=== PATIENT | female | born 1965 | race Caucasian/White ===

== ENCOUNTER 2016-06-19 19:08 | Observation (INO) ==
[2016-06-19] MEDS ORDERED: Ondansetron 4 MG/2 ML VIAL IVP ONE (19:25)
[2016-06-19] MEDS ORDERED: *HR* Morphine 2 MG/ML SYRINGE IVP ONE ×3 (19:25→22:33)
[2016-06-19] MEDS ORDERED: Furosemide 40 MG/4 ML VIAL IVP ONE (19:25)
--- NOTE | 2016-06-19 19:29 | Emergency Department Note ---
Disposition Clinical Impression: Chest pain Qualifiers: Chest pain type: precordial pain Qualified Code(s): R07.2 - Precordial pain Disposition: Admitted As Inpatient Condition: Good Referrals: Marianela Maria CNP [Primary Care Provider] - Forms: ED Satisfaction Letter Time of Disposition: 23:23 Chest Pain HPI - General Chief Complaint: ED Chest Pain Stated Complaint: chest pain difficulty breathing Time Seen by Provider: 06/19/16 19:25 Source: patient Mode of arrival: ambulatory Limitations: no limitations Vital Signs Reviewed: Yes Nursing Notes Reviewed: Yes - History of Present Illness HPI Narrative: 50-year-old female who presents complaining of difficulty breathing since last night. She states she sat up late last night. She states about an hour ago after dinner she had some sharp discomfort in her chest. It is in the precordial area, to level VII. There is a pressure component to it. She feels tight like she cannot breathe. She took 3 nitroglycerin which did not really change the pain much still a level VII. She has had 3 previous MIs. She states her symptoms and never been the same with any of the MRIs. She has had bypass surgery and 2 stents. Pt complaint: chest pain Onset (ago): Just [employer] Time: 18:30 Duration: constant Onset: during rest Pain Location: substernal Severity: moderate Severity scale (1-10): 7 Quality: tightness, sharp Improves with: nothing Worsens with: nothing Context: other (History of [place] 3, bypass, stents.) Associated symptoms: Reports: nausea Treatments prior to arrival chest pain: nitroglycerin - Related Data Home Medications Medication Instructions Recorded Confirmed Albuterol Sulfate [Proair Hfa] 1 puff IH 02/28/16 Carvedilol [Coreg] 12.5 mg PO BID 02/28/16 06/19/16 Citalopram Hydrobromide [Celexa] 40 mg PO DAILY 02/28/16 06/19/16 Enalapril Maleate [Vasotec] 5 mg PO DAILY 02/28/16 06/19/16 Loratadine [Claritin] 10 mg PO DAILY 02/28/16 06/19/16 Nitroglycerin [Nitrostat] 0.4 mg SL PRN PRN 02/28/16 06/19/16 Prasugrel [Effient] 10 mg PO DAILY 02/28/16 06/19/16 Ranitidine HCl [Zantac] 150 mg PO BID 02/28/16 06/19/16 Rosuvastatin [Crestor] 40 mg PO HS 02/28/16 06/19/16 Fluticasone Propionate Nasal 16 gm NS DAILY 04/05/16 06/19/16 [Flonase] Furosemide [Lasix] 20 mg PO DAILY 05/25/16 06/19/16 Previous Rx's Medication Instructions Recorded Dicyclomine [Bentyl] 10 - 20 mg PO QID PRN #30 capsule 06/06/16 Ondansetron ODT [Zofran ODT] 4 mg SL Q6HR PRN #12 tab.rapdis 06/06/16 Oxycodone HCl/Acetaminophen 1 - 2 each PO Q6H PRN #16 tablet 06/06/16 [Percocet 5-325 mg Tablet] Allergies Allergy/AdvReac Type Severity Reaction Status Date / Time aspirin Allergy Hives Verified 06/14/16 11:17 NSAIDS (Non-Steroidal Allergy Hives Verified 06/14/16 11:17 Anti-Inflamma All systems ED: reviewed and negative except as stated. Constitutional: Denies: fever, chills Eyes: Denies: vision change ENT ED: Denies: ear pain, throat pain Cardiovascular: Reports: chest pain. Denies: palpitations Respiratory: Reports: dyspnea. Denies: cough, wheezes, hemoptysis, sputum production Gastrointestinal: Reports: nausea. Denies: abdominal pain, vomiting Musculoskeletal: Denies: back pain, neck pain Neurological: Denies: weakness, numbness, paresthesias Chest Pain PMH - Past Medical History Medical history: Reports: arthritis, COPD, GERD, hyperlipidemia, hypertension, kidney stones, myocardial infarction, other Surgical history: Reports: other (History of a spine stimulator with removal initially placed in [facility] then removed in [facility] by another surgeon is had chronic problems since then) Psychiatric history: Reports: anxiety, depression - Social History Smoking Status: Current every day smoker Alcohol use: Reports: none Drug use: Reports: none Physical Exam - General Limitations: no limitations General appearance: alert, in no apparent distress - Head Head exam: atraumatic, normocephalic - Eye Eye exam: Present: PERRL, EOMI. Absent: scleral icterus, conjunctival injection - ENT ENT exam: normal oropharynx, mucous membranes moist - Neck Neck exam: Present: normal inspection, full ROM, trachea midline. Absent: tenderness, lymphadenopathy - Chest Chest inspection: Present: normal inspection, symmetric chest wall rise. Absent : tenderness - Respiratory Respiratory exam: Present: normal lung sounds bilaterally. Absent: respiratory distress, wheezes - Cardiovascular Cardiovascular exam: Present: regular rate, normal rhythm, normal heart sounds - Abdominal Exam Abdominal exam: Present: soft, Non-Tender, normal bowel sounds. Absent: distention, organomegaly, mass - Extremities Exam Extremities exam: Present: normal inspection, full ROM, normal capillary refill. Absent: tenderness, pedal edema, calf tenderness - Neurological Exam Neurological exam: Present: alert, oriented X3, normal gait. Absent: motor sensory deficit - Psychiatric Psychiatric exam: Present: normal affect, normal mood - Skin Skin exam: Present: warm, dry, intact. Absent: cyanosis, diaphoresis Course - Reevaluation(s) Reevaluation #1: She had no relief with nitroglycerin at home. She got no relief with nitroglycerin here. Pain medication gave her relief. She had some recurrent sharp discomfort. Her pain is atypical for cardiac pain. In light of her history of having cardiac events with different types of pain, in light of the fact that I do not have an old EKG to compare, I think it would be prudent to watch her overnight and repeat her enzymes. I spoke with Dr. Montalvo. He is agreeable. Time: 23:17 Vital Signs Pulse Rate 93 06/19/16 19:08 Respiratory Rate 18 06/19/16 19:08 Blood Pressure 135/78 06/19/16 19:08 O2 Sat by Pulse Oximetry 96 06/19/16 19:08 Temperature 97.7 F 06/19/16 21:02 Pulse Rate 68 06/19/16 23:01 Respiratory Rate 18 06/19/16 23:01 Blood Pressure 123/77 06/19/16 23:01 O2 Sat by Pulse Oximetry 94 L 06/19/16 23:01 Oxygen Delivery Oxygen Delivery Room Air Chest Pain - MDM Narrative Medical decision making narrative: Differential includes but is not limited to coronary artery disease, angina, myocardial infarction, pulmonary embolus, pneumothorax, pneumonia, congestive heart failure - Medical Records Medical records reviewed: Yes I reviewed the patient's medical records. - Lab Data Lab results reviewed: Yes I reviewed the patient's lab results. Result diagrams: 06/19/16 19:54 06/19/16 19:54 Lab Results 06/19/16 06/19/16 06/19/16 Range/Units 19:54 19:54 19:54 WBC 7.6 (4.3-11.1) K/mcL RBC 4.59 (3.82-4.97) M/mcL Hgb 14.0 D (11.5-15.4) g/dL Hct 41.0 (35.3-44.9) % MCV 89.3 (83.0-100.0) fL MCH 30.5 (28.0-33.3) pg MCHC 34.1 (31.6-35.5) g/dL RDW 13.6 (11.5-14.5) % Plt Count 212 (140-400) K/mcL MPV 10.6 (9.4-12.4) fL Immature Gran % 0.3 (0-4) % Seg Neutrophils % 55.4 % Lymphocytes % 33.2 % Monocytes % 8.3 % Eosinophils % 2.4 % Basophils % 0.4 % Neutrophils # 4.2 (1.6-8.9) K/mcL Lymphocytes # 2.5 (0.6-4.6) K/mcL Monocytes # 0.6 (0.0-1.3) K/mcL Eosinophils # 0.2 (0.0-0.6) K/mcL Basophils # 0.0 (0.0-0.2) K/mcL PT 11.1 (9.4-12.1) Seconds INR 1.0 Sodium 144 (136-145) mEq/L Potassium 3.2 L (3.5-4.5) mEq/L Chloride 106 (98-109) mEq/L Carbon Dioxide 25 (19-29) mEq/L BUN 20 (7-20) mg/dL Creatinine 0.80 (0.57-1.11) mg/dL Est GFR ( Amer) > 60 (> 60) Est GFR (Non-Af Amer) > 60 (> 60) BUN/Creatinine Ratio 25 (6-26) Glucose 101 H (70-99) mg/dL Calculated Osmolality 301 H (280-300) Calcium 9.7 (8.6-10.8) mg/dL Total Bilirubin 0.3 (0.2-1.2) mg/dL AST 14 (5-34) Units/L ALT 14 (0-55) Units/L Alkaline Phosphatase 58 (38-126) Units/L Troponin I (0-0.03) ng/mL B-Natriuretic Peptide (0-100) pg/mL Serum Total Protein 7.2 (6.0-8.3) g/dL Albumin 3.8 (3.5-5.0) g/dL Globulin 3.4 (2.4-3.5) g/dL Albumin/Globulin Ratio 1.1 (1.1-2.2) 06/19/16 06/19/16 06/19/16 Range/Units 19:54 22:13 22:13 WBC (4.3-11.1) K/mcL RBC (3.82-4.97) M/mcL Hgb (11.5-15.4) g/dL Hct (35.3-44.9) % MCV (83.0-100.0) fL MCH (28.0-33.3) pg MCHC (31.6-35.5) g/dL RDW (11.5-14.5) % Plt Count (140-400) K/mcL MPV (9.4-12.4) fL Immature Gran % (0-4) % Seg Neutrophils % % Lymphocytes % % Monocytes % % Eosinophils % % Basophils % % Neutrophils # (1.6-8.9) K/mcL Lymphocytes # (0.6-4.6) K/mcL Monocytes # (0.0-1.3) K/mcL Eosinophils # (0.0-0.6) K/mcL Basophils # (0.0-0.2) K/mcL PT (9.4-12.1) Seconds INR Sodium (136-145) mEq/L Potassium (3.5-4.5) mEq/L Chloride (98-109) mEq/L Carbon Dioxide (19-29) mEq/L BUN (7-20) mg/dL Creatinine (0.57-1.11) mg/dL Est GFR ( Amer) (> 60) Est GFR (Non-Af Amer) (> 60) BUN/Creatinine Ratio (6-26) Glucose (70-99) mg/dL Calculated Osmolality (280-300) Calcium (8.6-10.8) mg/dL Total Bilirubin (0.2-1.2) mg/dL AST (5-34) Units/L ALT (0-55) Units/L Alkaline Phosphatase (38-126) Units/L Troponin I 0.00 0.01 (0-0.03) ng/mL B-Natriuretic Peptide 92 (0-100) pg/mL Serum Total Protein (6.0-8.3) g/dL Albumin (3.5-5.0) g/dL Globulin (2.4-3.5) g/dL Albumin/Globulin Ratio (1.1-2.2) - Radiology Data Radiology results reviewed: Yes I reviewed the patient's radiology results. ITS Impressions Chest X-Ray 06/19/16 19:25 IMPRESSION: 1. No acute process. 2. Poor visualization of the left cardiac silhouette. This can be seen with a prominent pericardial fat pad. D/ / German Julio MD / German Julio MD Interpreting Provider: German Julio MD - EKG Data EKG attestation: Yes I reviewed and interpreted this EKG. EKG results narrative: Sinus rhythm, rate of 83, nonspecific T-wave flattening. Rhythm Shows sinus rhythm with rate of 83, OK interval 125 ms, QS 81 ms with no other ectopy as interpreted by me. There is no old EKG available for comparison.
[2016-06-19] MEDS ORDERED: 0.9 % Sodium Chloride 1,000 ML ONE (19:31)
[2016-06-19] MEDS: Nitroglycerin 0.4 MG TAB.SUBL SL PRN ×3 (19:43→19:53)
[2016-06-19 20:01] LABS: Basophils % 0.4 %; Eosinophils # 0.2 K/mcL (0.0-0.6); Eosinophils % 2.4 %; Immature Granulocytes % 0.3 % (0-4); Lymphocytes # 2.5 K/mcL (0.6-4.6); Lymphocytes % 33.2 %; Mean Corpuscular HGB Conc 34.1 g/dL (31.6-35.5); Mean Corpuscular Hemoglobin 30.5 pg (28.0-33.3); Mean Corpuscular Volume 89.3 fL (83.0-100.0); Mean Platelet Volume 10.6 fL (9.4-12.4); Monocytes # 0.6 K/mcL (0.0-1.3); Monocytes % 8.3 %; Neutrophils # 4.2 K/mcL (1.6-8.9); Platelet Count 212 K/mcL (140-400); Red Blood Count 4.59 M/mcL (3.82-4.97); Red Cell Distribution Width 13.6 % (11.5-14.5); Segmented Neutrophils % 55.4 %
[2016-06-19 20:07] LABS: Prothrombin Time 11.1 Seconds (9.4-12.1)
[2016-06-19 20:18] LABS: Alanine Aminotransferase 14 Units/L (0-55); Albumin 3.8 g/dL (3.5-5.0); Albumin/Globulin Ratio 1.1 (1.1-2.2); Alkaline Phosphatase 58 Units/L (38-126); Aspartate Amino Transferase 14 Units/L (5-34); BUN/Creatinine Ratio 25 (6-26); Bilirubin,Total 0.3 mg/dL (0.2-1.2); Blood Urea Nitrogen 20 mg/dL (7-20); Calcium 9.7 mg/dL (8.6-10.8); Carbon Dioxide 25 mEq/L (19-29); Chloride 106 mEq/L (98-109); Globulin 3.4 g/dL (2.4-3.5); Glucose 101 mg/dL (70-99); Osmolality,Calculated 301 (280-300); Potassium 3.2 mEq/L (3.5-4.5); Sodium 144 mEq/L (136-145); Total Protein 7.2 g/dL (6.0-8.3); eGFR For African Americans > 60 (> 60); eGFR For Non-African Americans > 60 (> 60)
[2016-06-20] MEDS ORDERED: Nitroglycerin 0.4 MG TAB.SUBL SL PRN ×2 (00:05)
[2016-06-20] MEDS ORDERED: Ondansetron ODT 4 MG TAB.RAPDIS SL PRN (00:05)
[2016-06-20] MEDS ORDERED: Naloxone 0.4 MG/ML INJ IVP PRN (00:05)
[2016-06-20] MEDS: *HR* OxyCODONE/APAP 5/325 TABLET PO PRN ×3 (01:32→17:08)
[2016-06-20] MEDS: *HR* Morphine 2 MG/ML SYRINGE IVP PRN ×5 (02:52→21:19)
[2016-06-20] MEDS ORDERED: Loratadine 10 MG TABLET PO SCH (09:00)
[2016-06-20] MEDS: Famotidine 20 MG TABLET PO SCH ×2 (11:07→21:17)
[2016-06-20] MEDS: Furosemide 20 MG TABLET PO SCH (11:07)
[2016-06-20] MEDS: Fluticasone Propionate Nasal 50 MCG/SPRAY BOTTLE NS SCH (11:08)
--- NOTE | 2016-06-20 12:00 | Internal Med History&Physical ---
Date of Encounter: 06/20/16 Time of Encounter: 11:25 Assessment and Plan (1) Chest pain Current visit: Yes Status: Acute Repeat cardiac enzymes have been ordered. I will also order d-dimer. Further workup will be done as needed. Qualifiers: Chest pain type: precordial pain Qualified Code(s): R07.2 - Precordial pain (2) Hypertension Current visit: Yes Status: Chronic Continue Coreg and Vasotec. We will monitor blood pressure and adjust medications as needed Qualifiers: Hypertension type: essential hypertension Qualified Code(s): I10 - Essential (primary) hypertension (3) Hypokalemia Current visit: Yes Status: Acute We will give supplemental potassium and recheck labs in a.m. Internal Medicine - H&P: HPI Chief complaint: Dyspnea and chest pain Admitted From: Home Plans for Post Hospital Care: Home History of present illness: Ms. Julio is a 50 year old female who came to emergency room stating she had onset of dyspnea the evening of June 18 while in bed. It persisted through the night and required her to elevate the head of her bed to breathe adequately. The following day she noticed worsening dyspnea and developed a sharp discomfort in her mid lower chest or in the midline. She reports having a dry cough for approximately 3 days. She came to emergency room and was evaluated and admitted to [facility] floor for ongoing care needs. Her cardiac history is significant for hypertension. She has known ASHD status post 3 myocardial infarctions with the most recent one approximately 2006. She had a stent placed in 2001, 2 vessel CABG surgery 2002, and additional stents in 2006 and 2013 which was her last heart cath. She states she had an exercise stress test April 2016 in [place] which she reports was negative. She states she has been diagnosed with heart failure but a bn peptide in emergency room was within normal range. She denies DVT or pulmonary embolus. She states she is able to walk one half to three-quarter miles daily without chest discomfort typically. Past Med Surg Social Fam HX - Past Medical History Medical history: arthritis, COPD, GERD, hyperlipidemia, hypertension, kidney stones, myocardial infarction, other Psychiatric history: anxiety, depression - Past Surgical History Surgical History: other - Social History Smoking Status: Current every day smoker Packs per day: 3-4 cigarettes daily Smokeless Tobacco Status: No Alcohol use: none Drug use: none - Family History Father Living Status: Cause of : Liver cancer Hx Family Cardiac Disorders: Yes Mother Living Status: Cause of : lung cancer Hx Family Cardiac Disorders: Yes Internal Medicine - H&P: Meds Albuterol Sulfate [Proair Hfa] 1 puff IH 02/28/16 [History] Carvedilol [Coreg] 12.5 mg PO BID 02/28/16 [History] Citalopram Hydrobromide [Celexa] 40 mg PO DAILY 02/28/16 [History] Enalapril Maleate [Vasotec] 5 mg PO DAILY 02/28/16 [History] Loratadine [Claritin] 10 mg PO DAILY 02/28/16 [History] Nitroglycerin [Nitrostat] 0.4 mg SL PRN PRN 02/28/16 [History] Prasugrel [Effient] 10 mg PO DAILY 02/28/16 [History] Ranitidine HCl [Zantac] 150 mg PO BID 02/28/16 [History] Rosuvastatin [Crestor] 40 mg PO HS 02/28/16 [History] Fluticasone Propionate Nasal [Flonase] 16 gm NS DAILY 04/05/16 [History] Furosemide [Lasix] 20 mg PO DAILY 05/25/16 [History] Dicyclomine [Bentyl] 10 - 20 mg PO QID PRN #30 capsule 06/06/16 [Rx] Ondansetron ODT [Zofran ODT] 4 mg SL Q6HR PRN #12 tab.rapdis 06/06/16 [Rx] Oxycodone HCl/Acetaminophen [Percocet 5-325 mg Tablet] 1 - 2 each PO Q6H PRN # 16 tablet 06/06/16 [Rx] Allergies aspirin Allergy (Verified 06/14/16 11:17) Hives NSAIDS (Non-Steroidal Anti-Inflamma Allergy (Verified 06/14/16 11:17) Hives All Systems PM: A 10-system review of systems was performed and is negative for pertinent findings except as documented above in the HPI. Review of systems: Gen.: She states her weight has increased approximately 20 pounds in the past year Cardiovascular: As per history of present illness Respiratory: She has smoked since age 13 up to slightly more than one pack per day. She has a diagnosis of COPD but does not wear home oxygen. She has not been tested for NITHIN GI: She has had cholecystectomy. She has GERD. She has been diagnosed with dysfunction of the sphincter of Oddi and is waiting intervention by a merchandise support associate. She denies disorders of her liver or exocrine pancreas : She has passed at least 2 kidney stones in the past. She denies other kidney or bladder disorders Neurologic: She denies large distribution strokes or seizures Endocrine: She has hyperlipidemia but denies diabetes or thyroid disease Hematology/oncology: She denies blood disorders cancers or anemia Psychiatric: She has depression but denies anxiety or other mental health issues [place] skeletal: She has DJD but no known gout or other bone joint or muscle disorders. - Constitutional Vitals: Temp Pulse Resp BP Pulse Ox 97.8 F 70 17 115/74 96 06/20/16 07:31 06/20/16 08:52 06/20/16 07:31 06/20/16 08:52 06/20/16 08:52 Exam: Gen.: She is well-developed well-nourished female lying in bed who appears in no significant distress at present time HEENT: Head is atraumatic and normocephalic. Eyes: EOMI. There is no scleral icterus. Mouth: Mucosa is moist. Neck: Supple and nontender. There is no thyromegaly or adenopathy noted. Heart: Regular without murmurs gallops or ectopics Lungs: No wheezes or crackles are heard. Chest: There is minimal discomfort in compressing the midsternal area. She states it does not reproduce her chest pain at home. Abdomen: Soft and very minimally tender. There is no mass or guarding noted. Extremities: There is no cyanosis edema or clubbing noted. Dorsalis pedis and posterior tibial pulses are trace palpable bilaterally. Neurologic: Mental status: She is talkative and a good historian. Cranial nerves: Smile is symmetric. Forehead wrinkles bilaterally. Tongue protrudes midline. EOMI. Motor: There is no pronator drift. Cerebellar: Finger to nose is intact bilaterally. Skin: Warm and dry Internal Med - H&P Results - Labs CBC & Chem 7: 06/19/16 19:54 06/21/16 04:50 Labs: Cardiac Enzymes 06/20/16 06/20/16 Range/Units 00:50 06:00 Troponin I 0.01 0.01 (0-0.03) ng/mL
[2016-06-20] MEDS ORDERED: Loratadine 10 MG TABLET PO PRN (12:12)
--- NOTE | 2016-06-20 13:11 | Electrocardiograph Report ---
[address] [address] Test Date: 2016-06-19 Pat Name: Beatris Julio Department: 9201 Room: [facility] Gender: F Assistant Vice President: : 1965 Requested By: John Foote Order Number: [id number] Reading MD: Jaime Oviedo Measurements Intervals [place] Rate: 83 P: 22 GA: 125 QRS: 44 QRSD: 81 T: 101 QT: 372 QTc: 412 Interpretive Statements SINUS RHYTHM NONSPECIFIC ST \T\ T-WAVE ABNORMALITY Electronically Signed On 06-20-2016 13:09:24 EDT by Jaime Oviedo
--- NOTE | 2016-06-20 13:16 | Electrocardiograph Report ---
[place] [address] Test Date: 2016-06-20 Pat Name: Beatris Julio Department: 9202 Room: [facility] Gender: F Brand Attendant: : 1965 Requested By: Uday Montalvo Order Number: [id number] Reading MD: Jaime Oviedo Measurements Intervals [place] Rate: 66 P: 28 OR: 129 QRS: 41 QRSD: 77 T: 65 QT: 361 QTc: 375 Interpretive Statements SINUS RHYTHM Electronically Signed On 06-20-2016 13:14:41 EDT by Jaime Oviedo
[2016-06-21] MEDS: *HR* Morphine 2 MG/ML SYRINGE IVP PRN ×3 (04:53→12:41)
[2016-06-21 05:37] LABS: BUN/Creatinine Ratio 22 (6-26); Blood Urea Nitrogen 19 mg/dL (7-20); Calcium 9.4 mg/dL (8.6-10.8); Carbon Dioxide 27 mEq/L (19-29); Chloride 104 mEq/L (98-109); Glucose 88 mg/dL (70-99); Osmolality,Calculated 296 (280-300); Potassium 4.4 mEq/L (3.5-4.5); Sodium 142 mEq/L (136-145); eGFR For African Americans > 60 (> 60); eGFR For Non-African Americans > 60 (> 60)
[2016-06-21 05:59] LABS: Thyroid Stimulating Hormone 1.072 mcIU/mL (0.350-4.840)
[2016-06-21] MEDS: Famotidine 20 MG TABLET PO SCH (08:50)
[2016-06-21] MEDS: Furosemide 20 MG TABLET PO SCH (08:50)
[2016-06-21] MEDS: Fluticasone Propionate Nasal 50 MCG/SPRAY BOTTLE NS SCH (09:49)
[2016-06-21] MEDS: *HR* OxyCODONE/APAP 5/325 TABLET PO PRN (09:50)
[2016-06-21 11:37] VITALS: BP 114/74
--- NOTE | 2016-06-21 11:59 | Discharge Summary ---
Date of Encounter: 06/21/16 Time of Encounter: 11:50 - Discharge Diagnosis (1) Chest pain Priority: Primary Status: Acute Qualifiers: Chest pain type: precordial pain Qualified Code(s): R07.2 - Precordial pain (2) Hypertension Priority: Secondary Status: Chronic Qualifiers: Hypertension type: essential hypertension Qualified Code(s): I10 - Essential (primary) hypertension (3) Hypokalemia Priority: Secondary Status: Resolved - Discharge Medications Home Medications: Albuterol Sulfate [Proair Hfa] 1 puff IH 02/28/16 [History] Carvedilol [Coreg] 12.5 mg PO BID 02/28/16 [History] Citalopram Hydrobromide [Celexa] 40 mg PO DAILY 02/28/16 [History] Enalapril Maleate [Vasotec] 5 mg PO DAILY 02/28/16 [History] Loratadine [Claritin] 10 mg PO DAILY 02/28/16 [History] Nitroglycerin [Nitrostat] 0.4 mg SL PRN PRN 02/28/16 [History] Prasugrel [Effient] 10 mg PO DAILY 02/28/16 [History] Ranitidine HCl [Zantac] 150 mg PO BID 02/28/16 [History] Rosuvastatin [Crestor] 40 mg PO HS 02/28/16 [History] Fluticasone Propionate Nasal [Flonase] 16 gm NS DAILY 04/05/16 [History] Furosemide [Lasix] 20 mg PO DAILY 05/25/16 [History] Dicyclomine [Bentyl] 10 - 20 mg PO QID PRN #30 capsule 06/06/16 [Rx] Ondansetron ODT [Zofran ODT] 4 mg SL Q6HR PRN #12 tab.rapdis 06/06/16 [Rx] Oxycodone HCl/Acetaminophen [Percocet 5-325 mg Tablet] 1 - 2 each PO Q6H PRN # 16 tablet 06/06/16 [Rx] Allergies/Adverse Reactions: Allergies aspirin Allergy (Verified 06/14/16 11:17) Hives NSAIDS (Non-Steroidal Anti-Inflamma Allergy (Verified 06/14/16 11:17) Hives Procedures/tests Complete & Pending: Procedures Performed prior 72 hours Category Date Time Status ECG 12 lead ECG [ECG] Routine Y 06/20/16 11:18 Completed Date of admission: 06/19/16 23:26 Primary care physician: Marianela Maria CNP - Patient Status Disposition: Home, Self-Care Condition: Good Overall status at discharge: patient is progressing back to baseline - Discharge Instructions Follow Up With: Marianela Maria CNP [Primary Care Provider] - 1 week - Diet and Activity Activity: resume usual activities as tolerated Diet: advance to your usual diet Hospital course: Ms. Julio is a 50 year old female who came to emergency room stating she had onset of dyspnea the evening of June 18 while in bed. It persisted through the night and required her to elevate the head of her bed to breathe adequately. The following day she noticed worsening dyspnea and developed a sharp discomfort in her mid lower chest or in the midline. She reports having a dry cough for approximately 3 days. She came to emergency room and was evaluated and admitted to [facility] for ongoing care needs. Initial orders were written by the emergency room physician. I saw her on June 20 and performed the history and physical. Repeat cardiac enzymes showed no evidence of myocardial damage. A d-dimer returned within normal range. Dyspnea and chest discomfort lessened during hospitalization. The etiology of her chest discomfort and dyspnea was not determined with certainty. She continued on Coreg and ACEI with blood pressure satisfactory during hospitalization. Supplemental potassium was given and potassium normalized by the June 21. TSH was normal at 1.072. On June 21 she felt stable for discharge home. She will follow with her PCP Marianela Maria CNP within 1 week. - Time Spent with Patient Total time spent providing and/or coordinating discharge services: - Constitutional Vitals: Temp Pulse Resp BP Pulse Ox 97.8 F 64 16 114/74 96 06/21/16 11:34 06/21/16 11:34 06/21/16 11:34 06/21/16 11:34 06/21/16 11:34
== END 2016-06-21 12:47 | disposition home or self-care (01) ==
LOC: EMEROOPIK 19:08 → INPPIK 19:08
PROVIDERS: ADMIT Internal Medicine; ATTEND Internal Medicine